=== PATIENT | female | born 1975 | race Caucasian/White ===

== ENCOUNTER 2017-04-28 01:05 | Emergency (ER) | payer MEDICAID ==
[2017-04-28 01:12] VITALS: BP 145/93
== END 2017-04-28 01:30 | disposition home or self-care (01) ==
LOC: ED 01:05
DX: L73.9 Follicular disorder, unspecified (principal)

== ENCOUNTER 2018-12-11 17:45 | Emergency (ER) | payer OTHER ==
[~2018-12-11] VITALS: Ht 167.6 cm; Wt 86.7 kg
[2018-12-11 17:51] VITALS: Ht 167.6 cm; Wt 86.7 kg
[2018-12-11 18:43] LABS: AMPHETAMINE QUAL UR NONE DETECTED (See below)
[2018-12-11 19:20] VITALS: BP 123/72
== END 2018-12-11 19:20 | disposition home or self-care (01) ==
LOC: ED 17:45
PROVIDERS: Emergency Medicine
DX: Z02.83 Encounter for blood-alcohol and blood-drug test (principal)